=== PATIENT | male | born 1975 | race Caucasian/White ===

== ENCOUNTER 2018-02-26 22:00 | Emergency (ER) | payer SELFPAY ==
[2018-02-27] MEDS: HYDROCODONE/APAP (5/325) TAB PO (01:23)
[2018-02-27] MEDS: CEFAZOLIN 1 GM INJ IM (01:23)
[2018-02-27] MEDS: DIPHTH/TET/ACEL PERTUSS (ADULT) 0.5 ML VIAL IM* (01:24)
== END 2018-02-27 03:23 | disposition home or self-care (01) ==
LOC: FTE 22:00
DX: S61.432A Puncture wound without foreign body of left hand, initial encounter (principal); W26.8XXA Contact with other sharp object(s), not elsewhere classified, initial encounter; Y92.89 Other specified places as the place of occurrence of the external cause; Z23 Encounter for immunization
CPT/HCPCS: 73130; 73130-LT; 90471; 90715; 96372; 99284-25

== ENCOUNTER 2018-04-01 19:31 | Emergency (ER) | payer MEDICAID ==
[2018-04-01] MEDS: KETOROLAC 30 MG INJ IM (23:00)
[2018-04-01] MEDS: ACETAMINOPHEN 500 MG TAB PO (23:00)
== END 2018-04-02 01:47 | disposition home or self-care (01) ==
LOC: FTE 04-02 01:47
DX: S20.212A Contusion of left front wall of thorax, initial encounter (principal); V00.311A Fall from snowboard, initial encounter; Y92.9 Unspecified place or not applicable
CPT/HCPCS: 71046; 71100; 96372; 99284-25